=== PATIENT | male | born 1955 | race African-American/Black ===

== ENCOUNTER 2019-12-06 18:07 | Emergency (ER) | payer OTHER ==
[2019-12-06 18:43] LABS: Hemoglobin 15.7 g/dL (14.0-18.0); Mean Corpuscular HGB CONC 31.6 g/dL (32.0-36.0); Mean Corpuscular Hemoglobin 27.9 pg (27.0-31.0); Mean Corpuscular Volume 88.3 fL (78.0-98.0); Mean Platelet Volume 9.2 fL (7.4-10.4); Platelet Count 238 thou/uL (130-400); RBC Distribution Width 12.5 % (11.5-14.5); Red Blood Cell (RBC) Count 5.64 mill/uL (4.70-6.10); White Blood Cell (WBC) Count 4.1 thou/uL (4.8-10.8)
[2019-12-06 19:04] LABS: Band 2 % (5-11); Lymphocytes 13 % (21-51); MDiff Complete? YES; Monocytes 11 % (0-10); Neutrophil 71 % (42-75); Platelet Morphology Comment Appears Adequate; RBC Morphology Normal; Reactive Lymphocytes 3 % (0-10)
[2019-12-06 19:10] LABS: ALT (SGPT) 35 U/L (8-55); AST (SGOT) 58 U/L (5-34); Albumin 3.6 g/dL (3.4-4.8); Alkaline Phosphatase 58 U/L (40-110); Anion Gap 16 mmol/L (10-20); BUN (Urea Nitrogen) 33 mg/dL (8.4-25.7); Bilirubin, Total 1.7 mg/dL (0.2-1.2); CK (CPK) 259 U/L (30-200); Calc. Creatinine Clearance 0 mL/min (70-130); Calcium 9.2 mg/dL (7.8-10.44); Carbon Dioxide 24 mmol/L (23-31); Chloride 106 mmol/L (98-107); Estimated GFR-MDRD 50; Globulin 4.5 g/dL (2.4-3.5); Glucose 110 mg/dL (80-115); Protein, Total 8.1 g/dL (5.8-8.1); Sodium 142 mmol/L (136-145)
--- NOTE | 2019-12-06 19:13 | RAD ---
Portable frontal chest radiograph: 12/06/2019 COMPARISON: None HISTORY: Hypoxia, fever, crackles FINDINGS: The lack of comparison imaging limits detailed assessment. A dual lead transvenous pacing d evice is present, inserted via a left subclavian approach. Nonspecific mild increased linear interstitial density noted in the perihilar regions and both lung bases. No focal consolidation or al veolar edema. No pneumothorax or pleural fluid. IMPRESSION: Portable frontal chest radiograph as detailed above. Nonspecific mild increased linear in terstitial density in the perihilar regions and lung bases.
[2019-12-06 19:25] LABS: CKMB 2.2 ng/mL (0-6.6)
[2019-12-06 22:42] LABS: Lactic Acid 1.8 mmol/L (0.5-2.2)
[2019-12-07 10:43] LABS: SARS-CoV-2 MS2 Positive; SARS-CoV-2 N Gene Negative; SARS-CoV-2 S Gene Negative; SARS-CoV-2 orf1ab Negative
== END 2019-12-07 00:36 | disposition short-term general hospital (02) ==
LOC: ERS 18:07
DX: R09.02 Hypoxemia (principal); R79.89 Other specified abnormal findings of blood chemistry; Z20.828 Contact with and (suspected) exposure to other viral communicable diseases; I48.91 Unspecified atrial fibrillation; I10 Essential (primary) hypertension; Z79.899 Other long term (current) drug therapy; Z79.82 Long term (current) use of aspirin
CPT/HCPCS: 36415; 71045; 80053; 82550; 82553; 83605; 83880; 84484; 85025; 87040; 87635; 87804; 93005; U0003